=== PATIENT | female | born 1940 | race Caucasian/White ===

== ENCOUNTER 2018-05-27 12:26 | Outpatient (CLI) | payer MEDICARE, MEDICAID, SELFPAY ==
[2018-05-27 13:10] VITALS: BP 108/70; PULSE 68; RESP 20; TEMP 36.9; O2SAT 96
[2018-05-27 13:57] LABS: Alanine Aminotransferase 19 U/L (12-78); Albumin Level 3.1 gm/dL (3.4-5.0); Albumin/Globulin Ratio 0.9 (1.1-1.8); Alkaline Phosphatase 235 U/L (46-116); Anion Gap 10.2 mEq/L (5-15); Aspartate Amino Transferase 11 U/L (15-37); Bilirubin,Total 0.1 mg/dL (0.2-1.0); Blood Urea Nitrogen 19 mg/dL (7-18); Calcium 8.8 mg/dL (8.5-10.1); Carbon Dioxide 26 mmol/L (21.0-32.0); Chloride 106 mmol/L (98-107); Creatinine,Serum 0.64 mg/dL (0.55-1.02); Estimated Glomerular Filt Rate 90 ml/min (>60); GFR (African American) 109 ML/MIN (>60); Globulin 3.4 gm/dl (1.3-3.2); Glucose 110 mg/dL (74-106); Potassium 4.2 mmoL/L (3.5-5.1); Sodium 138 mmol/L (136-145); Thyroid Stimulating Hormone 1.37 uIU/ml (0.358-3.740); Total Protein,Serum 6.5 gm/dL (6.4-8.2)
[2018-05-27 14:27] LABS: Basophils % 0.2 % (0.1-2.0); Eosinophils % 0.5 % (0.1-12.0); Hematocrit 28.9 % (37.0-47.0); Hemoglobin 8.9 g/dL (12.2-16.2); Lymphocytes # 0.7 K/mm3 (0.7-4.5); Lymphocytes % 14.9 K/mm3 (10-50); Mean Corpuscular HGB Conc 30.6 g/dL (31.8-35.4); Mean Corpuscular Hemoglobin 28.2 pg (27.0-31.2); Mean Corpuscular Volume 91.9 fl (81-99); Mean Platelet Volume 7.5 fl (7.4-10.4); Monocytes # 0.2 K/mm3 (0.1-1.0); Monocytes % 3.8 % (1.7-9.3); Neutrophils # 3.5 K/mm3 (1.8-7.8); Neutrophils % 80.5 % (37.0-80.0); Platelet Count 238 K/mm3 (142-424); Red Blood Count 3.14 M/mm3 (4.20-5.40); Red Cell Distribution Width 18.2 % (11.5-17.5); White Blood Count 4.4 K/mm3 (4.8-10.8)
[2018-05-27 16:18] VITALS: BP 120/74; PULSE 68; RESP 20; TEMP 37.1; O2SAT 96
[2018-05-28 08:50] LABS: Folate >20.0 ng/mL (>3.0); Vitamin B12 428 pg/mL (232-1245)
== END 2018-05-27 13:10 | disposition home or self-care (01) ==
PROVIDERS: PCP Internal Medicine; Visit Provider Specialist
DX: G40.909 Epilepsy, unspecified, not intractable, without status epilepticus (principal); G93.40 Encephalopathy, unspecified; Z86.73 Personal history of transient ischemic attack (TIA), and cerebral infarction without residual deficits; R53.83 Other fatigue; R41.0 Disorientation, unspecified; E78.5 Hyperlipidemia, unspecified
CPT/HCPCS: 36415; 80053; 82607; 82746; 84443; 85025; J1642

== ENCOUNTER → 2018-06-06 12:20 | Outpatient (CLI) | payer MEDICARE, MEDICAID, SELFPAY ==
[2018-06-06 14:28] LABS: Phenytoin (Dilantin) 21.2 ug/mL (10-20)
== END ==
PROVIDERS: PCP Nurse Practitioner Family; Visit Provider Nurse Practitioner Family
DX: G40.909 Epilepsy, unspecified, not intractable, without status epilepticus (principal)
CPT/HCPCS: 36415; 80185

== ENCOUNTER → 2018-08-26 12:44 | Outpatient (POV) | payer MEDICARE, MEDICAID, SELFPAY | PROVIDERS: Visit Provider Specialist | DX: G40.909 Epilepsy, unspecified, not intractable, without status epilepticus (principal) | CPT/HCPCS: 95819 ==

== ENCOUNTER 2018-12-16 09:37 | Outpatient (CLI) | payer MEDICARE, MEDICAID, SELFPAY ==
[2018-12-16 12:30] LABS: Alanine Aminotransferase 19 U/L (12-78); Albumin Level 3.5 gm/dL (3.4-5.0); Albumin/Globulin Ratio 1.1 (1.1-1.8); Alkaline Phosphatase 136 U/L (46-116); Anion Gap 14.7 mEq/L (5-15); Aspartate Amino Transferase 17 U/L (15-37); Bilirubin,Total 0.2 mg/dL (0.2-1.0); Blood Urea Nitrogen 19 mg/dL (7-18); C-Reactive Protein 0.2 mg/L (0.0-0.9); Calcium 9.2 mg/dL (8.5-10.1); Carbon Dioxide 23 mmol/L (21.0-32.0); Chloride 108 mmol/L (98-107); Creatinine,Serum 0.56 mg/dL (0.55-1.02); Estimated Glomerular Filt Rate 105 ml/min (>60); GFR (African American) 127 ML/MIN (>60); Globulin 3.1 gm/dl (1.3-3.2); Glucose 107 mg/dL (74-106); Potassium 3.7 mmoL/L (3.5-5.1); Sodium 142 mmol/L (136-145); Total Protein,Serum 6.6 gm/dL (6.4-8.2)
[2018-12-16 14:37] LABS: Erythrocyte Sedimentation Rate 22 mm/hr (0-30)
== END 2018-12-16 10:05 | disposition home or self-care (01) ==
LOC: LAB 09:38
PROVIDERS: Visit Provider Specialist
DX: G40.909 Epilepsy, unspecified, not intractable, without status epilepticus (principal); G44.52 New daily persistent headache (NDPH)
CPT/HCPCS: 80053; 85651; 86140; J1642

== ENCOUNTER → 2018-12-18 11:54 | Outpatient (CLI) | payer MEDICARE, MEDICAID, SELFPAY ==
--- NOTE | 2018-12-18 11:58 | CT_ITS ---
CT angio head INDICATION: New onset right temporal headache with dizziness and seizures ITS.REASON: eval for temporal artery inflammation, new [facility] ORDERING PHYSICIAN: Celeste Hi MD PATIENT AGE: 78 years COMPARISON: None TECHNIQUE: Axial images are obtained following the intravenous administration of 100 mL's Optiray 350. Sagittal and coronal reformatted images are reviewed as well. All CT scans at the facility use one or more dose reduction, viz: automated exposure control, ma/kV adjustment per patient size (including targeted exams where dose is matched to indication, i.e. head), or iterative reconstruction technique. FINDINGS: There are atheromatous changes of the cavernous portion and clinoid portion of the carotid arteries on both sides with calcific plaque. No high-grade stenosis evident. No aneurysm, arteriovenous malformation, or major intracranial occlusive process evident. The vessels have smooth appearance. Calcific plaque also involves vertebral arteries. Vertebral basilar system has an otherwise unremarkable appearance. No evidence of cavernous sinus thrombosis. Prominent dural calcification is noted in the anterior falx. No enhancing masses are evident. IMPRESSION: 1. Calcific plaque of the vertebral arteries and intracranial carotid arteries without significant stenosis. 2. Otherwise negative CT angiogram of the brain. No aneurysm, AVM, or major intracranial occlusive process evident.
== END ==
PROVIDERS: PCP Nurse Practitioner Family; Visit Provider Specialist
DX: G40.909 Epilepsy, unspecified, not intractable, without status epilepticus (principal); G44.52 New daily persistent headache (NDPH)
CPT/HCPCS: 70496; Q9967